=== PATIENT | male | born 1965 | race Caucasian/White ===

== ENCOUNTER → 2023-12-31 06:59 | Outpatient (REF) | payer BC, SELFPAY | LOC: MRI 06:59 | PROVIDERS: ATTENDING PHYSICIAN Dentist General Practice; FAMILY PHYSICIAN Family Medicine | DX: M26.603 Bilateral temporomandibular joint disorder, unspecified (principal) | CPT/HCPCS: 70336 ==

== ENCOUNTER → 2023-12-31 17:04 | Outpatient (REF) | payer BC, SELFPAY | LOC: RAD 17:04 | PROVIDERS: ATTENDING PHYSICIAN Nurse Practitioner Family | DX: R10.9 Unspecified abdominal pain (principal) | CPT/HCPCS: 76700 ==